=== PATIENT | female | born 1950 | race Two or more races ===

== ENCOUNTER → 2017-09-20 | Outpatient (CLI) | payer OTHER, BC | LOC: BMCIMAGING 12:58 | PROVIDERS: ATTEND Internal Medicine | DX: Z13.820 Encounter for screening for osteoporosis (principal); M85.89 Other specified disorders of bone density and structure, multiple sites; Z78.0 Asymptomatic menopausal state ==

== ENCOUNTER → 2018-10-28 | Outpatient (CLI) | payer OTHER, BC | LOC: BMCIMAGING 12:48 ==